=== PATIENT | female | born 1960 | race Caucasian/White ===

== ENCOUNTER 2017-11-07 14:22 | Outpatient (CLI) | payer MEDICAID ==
[2017-11-07 18:12] LABS: HGB - HEMOGLOBIN 13.5 g/dL (12.0-16.0); MEAN CORPUSCULAR HEMOGLOBIN 31.4 pg (27.0-31.0); MEAN CORPUSCULAR HGB CONC 34.4 g/dL (32.0-36.0); MEAN CORPUSCULAR VOLUME 91.6 fL (81.0-99.0); MEAN PLATELET VOLUME 9.4 fL (7.9-10.8); RED BLOOD COUNT 4.31 10^6/uL (4.20-5.40); RED CELL DISTRIBUTION WIDTH 13.1 % (12.0-15.0); WHITE BLOOD COUNT 5.7 x10^3/uL (4.8-10.8)
[2017-11-07 18:20] LABS: CRP - C-REACTIVE PROTEIN 1.4 mg/dL (0-1.0)
[2017-11-07 18:27] LABS: URIC ACID 4.5 mg/dL (2.6-7.2)
[2017-11-07 19:11] LABS: RHEUMATOID FACTOR NEGATIVE (Negative)
[2017-11-09 13:06] LABS: ANA SCREEN NEGATIVE (NEGATIVE)
== END 2017-11-07 14:23 | disposition home or self-care (01) ==
LOC: LAB.F 14:22
PROVIDERS: ATTEND Physician Assistant Medical
DX: G51.9 Disorder of facial nerve, unspecified (principal); H04.129 Dry eye syndrome of unspecified lacrimal gland; H53.8 Other visual disturbances; M13.0 Polyarthritis, unspecified
CPT/HCPCS: 36415; 84550; 85027; 85651; 86038; 86140; 86200; 86430

== ENCOUNTER 2018-07-12 08:00 | Outpatient (CLI) | payer MEDICAID ==
[2018-07-12 17:57] LABS: BILIRUBIN,URINE NEGATIVE (NEGATIVE); GLUCOSE, URINE (UA) NEGATIVE (NEGATIVE); KETONES,URINE (UA) NEGATIVE (NEGATIVE); LEUKOCYTE ESTERASE, URINE TRACE (NEGATIVE); NITRITE,URINE POSITIVE (NEGATIVE); OCCULT BLOOD,URINE NEGATIVE (NEGATIVE); PH,URINE 7.5 PH (5.0-7.5); PROTEIN,URINE NEGATIVE (NEGATIVE); UROBILINOGEN,URINE 0.2 (NORMAL) E.U./dL (NORMAL)
[2018-07-12 18:10] LABS: CLARITY,URINE CLEAR (CLEAR)
[2018-07-12 18:15] LABS: RBC,URINE None Seen /HPF (0-5); SQUAMOUS EPITHELIAL CELL,UR FEW Squamous (<= Few)
[2018-07-12 18:16] LABS: BACTERIA,URINE Many /HPF (None Seen)
== END 2018-07-12 23:59 | disposition home or self-care (01) ==
LOC: LAB.R 08:00
PROVIDERS: ATTEND Physician Assistant Medical
DX: R30.0 Dysuria (principal)
CPT/HCPCS: 81001; 81003; 87086; 87181

== ENCOUNTER 2018-08-26 08:00 | Outpatient (CLI) | payer MEDICAID | END 2018-08-26 23:59 | disposition home or self-care (01) | LOC: LAB.R 08:00 | PROVIDERS: ATTEND Physician Assistant Medical | DX: N39.0 Urinary tract infection, site not specified (principal); R30.0 Dysuria | CPT/HCPCS: 87086; 87181 ==

== ENCOUNTER 2018-09-16 20:50 | Outpatient (CLI) | payer MEDICAID ==
--- NOTE | 2018-09-17 12:27 | Ultrasound Report ---
Reason: CAROTID BRUIT, LEFT Procedure Date: 09/16/2018 Accession Number: [id number] / [id number] Procedure: US - Carotid Doppler Complete CPT Code: FULL RESULT: EXAM: BILATERAL CAROTID AND VERTEBRAL ARTERY DUPLEX DOPPLER ULTRASOUND: EXAM DATE: 09/16/2018 09:20 PM CLINICAL HISTORY: Carotid bruit, left. COMPARISON: None. TECHNIQUE: Grayscale imaging, color Doppler, and duplex spectral Doppler were used to evaluate the carotid and vertebral arteries bilaterally. Static images were obtained. FINDINGS: Mild intimal thickening is seen bilaterally. Subjectively bright grayscale, there is less than 25% of the lumen of atherosclerotic plaque in the carotid bulb regions bilaterally, predominantly hyperechoic plaque right greater than left. Normal antegrade flow is present in bilateral vertebral arteries. VELOCITIES (cm/sec): Right CCA mid: PSV 85 cm/sec CCA dist: PSV 66.3 cm/sec ICA prox: PSV 90.0 cm/sec, EDV 30.4 cm/sec ICA mid: PSV 105 cm/sec, EDV 40 cm/sec ICA dist: PSV 71 cm/sec, EDV 28 cm/sec ECA: PSV 122 cm/sec Vert: PSV 56 cm/sec ICA/CCA: 1.2 Left CCA mid: PSV 73 cm/sec CCA dist: PSV 55 cm/sec ICA prox: PSV 87 cm/sec, EDV 32 cm/sec ICA mid: PSV 109 cm/sec, EDV 46 cm/sec ICA dist: PSV 124 cm/sec, EDV 43 cm/sec ECA: PSV 37 cm/sec Vert: PSV 76 cm/sec ICA/CCA: 1.7 ICA diameter stenosis: Right: <50% by velocity and <70% by NASCET criteria. Left: <50% by velocity and <70% by NASCET criteria. IMPRESSION: 1. Subjectively overall mild bilateral carotid artery plaquing in the bulb regions. 2. In the right carotid artery there are no elevated carotid artery velocities to suggest hemodynamically significant stenosis. 3. In the left carotid artery there are no elevated carotid artery velocities to suggest hemodynamically significant stenosis. 4. Normal antegrade flow is present in bilateral vertebral arteries. General Recommendations: Stenosis =50% ICA - Follow-up ultrasound 6-12 months Stenosis <50% ICA - High Risk Patient with plaque - Follow-up ultrasound 1-2 years Normal Study but High Risk Patient - Follow-up ultrasound 3-5 years Management recommendations and diagnostic criteria are based on current IAC endorsed standards in Carotid Artery Stenosis: Grayscale and Doppler Ultrasound Diagnosis. Validated velocity measurements with angiographic measurements and velocity criteria are extrapolated from diameter data as defined by the Society of Radiologists in Ultrasound Consensus Conference Radiology 2003; 229;340-346. RADIA
== END 2018-09-16 20:51 | disposition home or self-care (01) ==
LOC: DI 20:50
PROVIDERS: ATTEND Physician Assistant Medical
DX: R09.89 Other specified symptoms and signs involving the circulatory and respiratory systems (principal)
CPT/HCPCS: 93880